=== PATIENT | male | born 1960 | race Caucasian/White ===

== ENCOUNTER 2017-03-04 18:26 | Inpatient (IN) | payer MEDICAID ==
[~2017-03-04] VITALS: Ht 182.9 cm; Wt 80.5 kg
[~2017-03-04 18:26] MED LIST: FOLI-17 PO; LISI-167 PO; MAGN400T26 PO; METO25TA35 PO; MULT-6 PO; ONDA-39 PO; THIA100T10 PO; TRAM50TA2 PO
[2017-03-04] MEDS ORDERED: SODIUM CHLORIDE FLUSH 10ML SYR IVF ONE (19:00)
[2017-03-04] MEDS ORDERED: ONDANSETRON 2MG/ML, 2ML IVPush ONE (19:00)
[2017-03-04] MEDS ORDERED: SODIUM CHLORIDE 0.9% 1,000ML IVBOLUS ONE (19:00)
[2017-03-04] MEDS ORDERED: MAGNESIUM SULFATE 1 GM, THIAMINE 100 MG, FOLIC ACID 1 MG, MVI ADULT 10 ML in SODIUM CHL... IV ONE (19:00)
[2017-03-04] MEDS ORDERED: ONDANSETRON 2MG/ML, 2ML ONE (19:21)
[2017-03-04 19:45] LABS: BLOOD UREA NITROGEN 42 mg/dL (7-18)
[2017-03-04 20:02] LABS: DIFF TOTAL CELLS COUNTED 100 CELL DIFF
[2017-03-04 20:03] LABS: VERIFY COUNTS? YES
[2017-03-04 20:05] LABS: LARGE PLATELETS 1+
[2017-03-04 20:12] LABS: ASPARTATE AMINO TRANSFERASE 854 U/L (15-37)
[2017-03-04 20:13] LABS: ACETAMINOPHEN < 2 mcg/mL (10-30)
[2017-03-04] MEDS ORDERED: MAGNESIUM SULFATE PMX 2GM/50ML 50 ML IV ONE (20:30)
[2017-03-04] MEDS ORDERED: POTASSIUM CHLORIDE 20 MEQ TAB.ER.PRT PO ONE (20:30)
[2017-03-04] MEDS ORDERED: POTASSIUM CHLORIDE 20 MEQ TAB.ER.PRT ONE (20:47)
[2017-03-04] MEDS ORDERED: BISACODYL 10 MG SUPP PR PRN (21:00)
[2017-03-04] MEDS ORDERED: ONDANSETRON 2MG/ML, 2ML IVPush PRN (21:00)
[2017-03-04] MEDS ORDERED: POLYETHYLENE GLYCOL 17 GM PACKET PO PRN (21:00)
[2017-03-04] MEDS ORDERED: LORazepam 2 MG/ML, 1ML IVPush PRN (21:00)
[2017-03-04] MEDS ORDERED: DOCUSATE 100 MG CAPSULE PO PRN (21:00)
[2017-03-04 22:28] VITALS: BP 118/68
[2017-03-04 22:35] VITALS: BP 118/68
[2017-03-05 00:32] LABS: BLOOD UREA NITROGEN 36 mg/dL (7-18)
[2017-03-05 01:11] VITALS: BP 117/66
[2017-03-05 01:44] LABS: DAU SCREEN DISCLAIMER
[2017-03-05 01:54] LABS: POTASSIUM,URINE RANDOM 27 mmol/L
[2017-03-05] MEDS: POTASSIUM CHLORIDE 20 MEQ TAB.ER.PRT PO SCH ×2 (01:56→09:28)
[2017-03-05] MEDS: NS + 20MEQ KCL 1,000 ML IV SCH ×3 (04:13→23:11)
[2017-03-05 05:39] LABS: ASPARTATE AMINO TRANSFERASE 547 U/L (15-37); BLOOD UREA NITROGEN 31 mg/dL (7-18)
[2017-03-05 05:44] LABS: DIFF TOTAL CELLS COUNTED 100 CELL DIFF
[2017-03-05 05:47] LABS: VERIFY COUNTS? YES
[2017-03-05 05:49] LABS: HIV 1&2 ANTIBODY SCREEN Nonreactive (Nonreactive); HIV-1 p24 ANTIGEN Nonreactive (Nonreactive)
[2017-03-05 06:22] LABS: HEPATITIS C VIRUS ANTIBODY Nonreactive (Nonreactive)
[2017-03-05 06:51] VITALS: BP 110/65
[2017-03-05] MEDS ORDERED: POTASSIUM CHLORIDE 20 MEQ TAB.ER.PRT PO SCH (08:00)
[2017-03-05] MEDS ORDERED: POTASSIUM CHLORIDE 20 MEQ TAB.ER.PRT PO ONE (09:00)
[2017-03-05] MEDS ORDERED: POTASSIUM PHOSPHATE 22 MEQ in SODIUM CHLORIDE 0.9% 500 ML IV ONE (09:00)
[2017-03-05] MEDS: CYANOCOBALAMIN 1,000 MCG TABLET PO SCH (09:28)
[2017-03-05] MEDS: THIAMINE 100MG TABLET PO SCH (09:28)
[2017-03-05] MEDS: FOLIC ACID 1 MG TABLET PO SCH (09:28)
[2017-03-05] MEDS: MULTIVITAMIN 1 TABLET PO SCH (09:28)
[2017-03-05] MEDS: ENOXAPARIN 40 MG/0.4 ML SQ SCH (09:30)
[2017-03-05 13:04] VITALS: BP 119/67
[2017-03-05 19:32] VITALS: BP 130/67
[2017-03-06 02:00] VITALS: BP 129/64
[2017-03-06 05:41] LABS: BLOOD UREA NITROGEN 16 mg/dL (7-18)
[2017-03-06] MEDS: NS + 20MEQ KCL 1,000 ML IV SCH ×3 (06:10→16:49)
[2017-03-06 06:13] LABS: ASPARTATE AMINO TRANSFERASE 272 U/L (15-37)
[2017-03-06 06:17] LABS: DIFF TOTAL CELLS COUNTED 100 CELL DIFF
[2017-03-06 06:20] LABS: VERIFY COUNTS? YES
[2017-03-06 06:47] VITALS: BP 117/54
[2017-03-06] MEDS: ENOXAPARIN 40 MG/0.4 ML SQ SCH (09:44)
[2017-03-06] MEDS: MULTIVITAMIN 1 TABLET PO SCH (09:45)
[2017-03-06] MEDS: THIAMINE 100MG TABLET PO SCH (09:45)
[2017-03-06] MEDS: FOLIC ACID 1 MG TABLET PO SCH (09:45)
[2017-03-06] MEDS: CYANOCOBALAMIN 1,000 MCG TABLET PO SCH (09:45)
[2017-03-06 13:04] VITALS: BP 117/54
[2017-03-06] MEDS ORDERED: MAGNESIUM SULFATE PMX 2GM/50ML 50 ML IV ONE (14:00)
[2017-03-06] MEDS ORDERED: POTASSIUM CHLORIDE 20 MEQ TAB.ER.PRT PO ONE (14:00)
[2017-03-06 20:36] VITALS: BP 109/60
[2017-03-07 00:39] VITALS: BP 118/68
[2017-03-07 05:40] LABS: DIFF TOTAL CELLS COUNTED 100 CELL DIFF
[2017-03-07 05:43] LABS: LARGE PLATELETS 1+; VERIFY COUNTS? YES
[2017-03-07 06:00] LABS: ASPARTATE AMINO TRANSFERASE 221 U/L (15-37); BLOOD UREA NITROGEN 11 mg/dL (7-18)
[2017-03-07 08:36] VITALS: BP 120/67
[2017-03-07] MEDS: ENOXAPARIN 40 MG/0.4 ML SQ SCH (09:16)
[2017-03-07] MEDS: NS + 20MEQ KCL 1,000 ML IV SCH (09:16)
[2017-03-07] MEDS: FOLIC ACID 1 MG TABLET PO SCH (09:17)
[2017-03-07] MEDS: CYANOCOBALAMIN 1,000 MCG TABLET PO SCH (09:17)
[2017-03-07] MEDS: THIAMINE 100MG TABLET PO SCH (09:17)
[2017-03-07] MEDS: MULTIVITAMIN 1 TABLET PO SCH (09:17)
[2017-03-07] MEDS ORDERED: POTASSIUM CHLORIDE 20 MEQ TAB.ER.PRT PO ONE (10:30)
[2017-03-07 14:43] VITALS: BP 125/71
[2017-03-07 20:24] VITALS: BP 127/64
[2017-03-08 01:39] VITALS: BP 149/78
[2017-03-08] MEDS: NS + 20MEQ KCL 1,000 ML IV SCH (01:51)
[2017-03-08 06:26] LABS: ASPARTATE AMINO TRANSFERASE 175 U/L (15-37); BLOOD UREA NITROGEN 9 mg/dL (7-18)
[2017-03-08 07:27] VITALS: BP 131/71
[2017-03-08] MEDS: FOLIC ACID 1 MG TABLET PO SCH (10:25)
[2017-03-08] MEDS: MULTIVITAMIN 1 TABLET PO SCH (10:25)
[2017-03-08] MEDS: CYANOCOBALAMIN 1,000 MCG TABLET PO SCH (10:26)
[2017-03-08] MEDS: THIAMINE 100MG TABLET PO SCH (10:27)
[2017-03-08] MEDS: ENOXAPARIN 40 MG/0.4 ML SQ SCH (10:29)
[2017-03-08 13:42] VITALS: BP 137/79
[2017-03-08] MEDS: POTASSIUM CHLORIDE 10 MEQ in SODIUM CHLORIDE 0.9% 1,000 ML IV SCH (15:56)
[2017-03-08 19:41] VITALS: BP 139/72
[2017-03-09 02:39] VITALS: BP 145/85
[2017-03-09] MEDS: POTASSIUM CHLORIDE 10 MEQ in SODIUM CHLORIDE 0.9% 1,000 ML IV SCH ×2 (04:58→19:14)
[2017-03-09 06:16] LABS: ASPARTATE AMINO TRANSFERASE 119 U/L (15-37); BLOOD UREA NITROGEN 11 mg/dL (7-18)
[2017-03-09 08:00] VITALS: BP 146/80
[2017-03-09] MEDS: THIAMINE 100MG TABLET PO SCH (10:09)
[2017-03-09] MEDS: MULTIVITAMIN 1 TABLET PO SCH (10:09)
[2017-03-09] MEDS: FOLIC ACID 1 MG TABLET PO SCH (10:10)
[2017-03-09] MEDS: CYANOCOBALAMIN 1,000 MCG TABLET PO SCH (10:10)
[2017-03-09 14:15] VITALS: BP 148/85
[2017-03-09 20:47] VITALS: BP 143/83
[2017-03-10 02:36] VITALS: BP 144/82
[2017-03-10 05:52] LABS: ASPARTATE AMINO TRANSFERASE 75 U/L (15-37); BLOOD UREA NITROGEN 13 mg/dL (7-18)
[2017-03-10 07:42] VITALS: BP 127/83
[2017-03-10] MEDS: MULTIVITAMIN 1 TABLET PO SCH (08:11)
[2017-03-10] MEDS: THIAMINE 100MG TABLET PO SCH (08:11)
[2017-03-10] MEDS: FOLIC ACID 1 MG TABLET PO SCH (08:11)
[2017-03-10] MEDS: CYANOCOBALAMIN 1,000 MCG TABLET PO SCH (08:12)
[2017-03-10 13:50] VITALS: BP 131/77
[2017-03-10] MEDS: POTASSIUM CHLORIDE 10 MEQ in SODIUM CHLORIDE 0.9% 1,000 ML IV SCH (15:27)
[2017-03-10 22:21] VITALS: BP 161/85
[2017-03-11 02:16] VITALS: BP 134/79
[2017-03-11] MEDS: POTASSIUM CHLORIDE 10 MEQ in SODIUM CHLORIDE 0.9% 1,000 ML IV SCH (02:21)
[2017-03-11 06:07] LABS: ASPARTATE AMINO TRANSFERASE 52 U/L (15-37); BLOOD UREA NITROGEN 14 mg/dL (7-18)
[2017-03-11 07:30] VITALS: BP 133/75
[2017-03-11] MEDS: FOLIC ACID 1 MG TABLET PO SCH (08:45)
[2017-03-11] MEDS: THIAMINE 100MG TABLET PO SCH (08:45)
[2017-03-11] MEDS: CYANOCOBALAMIN 1,000 MCG TABLET PO SCH (08:45)
[2017-03-11] MEDS: MULTIVITAMIN 1 TABLET PO SCH (08:45)
[2017-03-11] MEDS ORDERED: TRAM50TA2 PO (09:19)
[2017-03-11 12:35] VITALS: BP 150/82
== END 2017-03-11 14:30 | DRG 871 ==
LOC: ED 20:15 → EDIP 20:19 → SUATTDRO 20:23 → ED 20:25 → 4EST 21:55
DX: A41.9 Sepsis, unspecified organism (principal); N17.0 Acute kidney failure with tubular necrosis; G93.41 Metabolic encephalopathy; S06.5X9A Traumatic subdural hemorrhage with loss of consciousness of unspecified duration, initial encounter; M62.82 Rhabdomyolysis; E87.1 Hypo-osmolality and hyponatremia; E87.6 Hypokalemia; E86.0 Dehydration; K70.10 Alcoholic hepatitis without ascites; F10.20 Alcohol dependence, uncomplicated; I10 Essential (primary) hypertension; D64.9 Anemia, unspecified; F17.210 Nicotine dependence, cigarettes, uncomplicated; F12.90 Cannabis use, unspecified, uncomplicated; F43.9 Reaction to severe stress, unspecified; G62.9 Polyneuropathy, unspecified; G93.89 Other specified disorders of brain; W19.XXXA Unspecified fall, initial encounter; Z82.0 Family history of epilepsy and other diseases of the nervous system; Z91.14 Patient's other noncompliance with medication regimen; Y93.89 Activity, other specified; Y92.89 Other specified places as the place of occurrence of the external cause; Y99.8 Other external cause status
CPT/HCPCS: 36415; 70450; 70551; 71010; 76700; 80048; 80053; 80074; 80307; 80329; 81001; 82140; 82247; 82248; 82390; 82436; 82525; 82550; 82607; 82746; 83605; 83735; 83930; 83935; 84100; 84133; 84300; 84443; 85025; 85610; 86703; 87899; 96361; 96365; 96366; 96375; J1650; J2405; J3411; J3475; J3480; G0435; G0480; J7030; J7040